=== PATIENT | male | born 1970 | race Caucasian/White ===

== ENCOUNTER 2021-06-21 08:53 | Outpatient (CLI) | payer BC, SELFPAY ==
--- NOTE | ~2021-06-21 | CT_ITS ---
EXAMINATION: CT sinus wo con DATE: 06/21/2021 09:16 INDICATION: Chronic congestion. Chronic sinusitis. TECHNIQUE: Computed tomography (CT) of the paranasal sinuses was performed without contrast. Iterativ e reconstruction technique was employed. Exam dose: 292.34 mGy-cm total exam DLP. COMPARISON: None FINDINGS: There is leftward deviation of the lower portion of the nasal septum and rightward bowing o f the upper portion. There is asymmetric moderate soft tissue swelling of the left nasal turbinates. The ostiomeatal units are patent bilaterally. There is an approximately 1.6 x 2.5 cm soft tissue density in the lower left maxillary sinus which ma y represent polyp or mucous retention cyst. There is otherwise mild nodular mucoperiosteal thickening in the lower portion of both maxillary sinuses. The ethmoid air cells and sphenoid sinuses are clear. The frontal sinuses are minimally developed. The mastoid air cells are normally developed and aerated bilaterally. IMPRESSION: Prominent polyp or mucous retention cyst in the lower left maxillary sinus Minimal nodular mucoperiosteal thickening of the lower portion of both maxillary sinuses Reviewed, dictated and finalized at [facility]. Reviewed, dictated and finalized at [facility]. HOUSEMAN IMPRESSION: Prominent polyp or mucous retention cyst in the lower left maxilla ry sinus Minimal nodular mucoperiosteal thickening of the lower portion of both maxillar y sinuses
== END 2021-06-21 08:54 | disposition home or self-care (01) ==
LOC: ANHIMG 08:57
PROVIDERS: PCP Family Medicine; Visit Provider Otolaryngology
DX: J32.9 Chronic sinusitis, unspecified (principal)
CPT/HCPCS: 70486

== ENCOUNTER → 2021-07-05 09:33 | Outpatient (CLI) | payer BC, SELFPAY ==
--- NOTE | ~2021-07-05 | MR_ITS ---
EXAMINATION: MR brain IAC wo/w con DATE: 07/05/2021 10:35 INDICATION: Left-sided sensorineural hearing loss. TECHNIQUE: Magnetic resonance imaging (MRI) of the brain, brainstem, and internal auditory canals was performed without and with 20 mL MultiHance intravenous contrast. Sequences included sagittal and ax ial T1-weighted FSE, axial diffusion-weighted FS EPI, axial T2*-weighted GRE, axial T2-weighted FLAIR Propeller, axial T2-weighted Propeller, small hhzts-bv-qjkd coronal FIESTA, small kwxwf-vg-ailu dawit nal T1-weighted FSE, and small qoivg-aw-pzkk axial T1-weighted SPGR. Postcontrast sequences included axial T1-weighted FSE, small mccrd-oq-ytud coronal T1-weighted FSE, and small qneha-hu-twxc axial T1- weighted SPGR. Apparent diffusion coefficient (ADC) maps were created. COMPARISON: CT sinuses 06/21/21 FINDINGS: There is no intracranial hemorrhage, acute infarction, or abnormal intracranial mass lesion . There are scattered areas of nonspecific increased T2-weighted signal intensity in the cerebral whi te matter, which is within normal limits for the patient's age. The ventricles are normal in size. Th ere is a mucous retention cyst in left maxillary sinus. The orbits are normal. The internal auditory canals and inner and middle ears are normal. The mastoid air cells are normal. IMPRESSION: 1. Normal brain. Reviewed, dictated and finalized at [facility]. LINER IMPRESSION: 1. Normal brain.
[2021-07-05 09:55] LABS: Estimated Glomerular Filt Rate > 60
== END ==
PROVIDERS: PCP Family Medicine; Visit Provider Otolaryngology
DX: H90.3 Sensorineural hearing loss, bilateral (principal)
CPT/HCPCS: 70553; A9577

== ENCOUNTER → 2022-05-05 11:27 | Outpatient (CLI) | payer BC, SELFPAY ==
--- NOTE | ~2022-05-05 | XR_ITS ---
XR chest 2V DATE: 05/05/2022 11:36 INDICATION: Cough and fever and shortness of breath for 8 to 9 days TECHNIQUE: 2 views, including PA projection and 2 lateral projections COMPARISON: None FINDINGS: Normal heart size. No hilar or mediastinal enlargement. There is mild discoid atelectasis or scarring in the left midlung. No pulmonary infiltrate or consolidation, pleural effusion or pulmonary vascular congestion or pneumo thorax is noted otherwise. IMPRESSION: Mild discoid atelectasis or scarring, left midlung; otherwise no active cardiopulmonary d isease Reviewed, dictated and finalized at [facility]. CAL RESEARCHER IMPRESSION: Mild discoid atelectasis or scarring, left midlung; otherwise no ac tive cardiopulmonary disease
== END ==
PROVIDERS: PCP Family Medicine; Visit Provider Nurse Practitioner Gerontology
DX: R05.9 Cough, unspecified (principal); R50.9 Fever, unspecified; R06.02 Shortness of breath; R91.8 Other nonspecific abnormal finding of lung field
CPT/HCPCS: 71046

== ENCOUNTER 2022-09-16 01:27 | Day surgery (SDC) | payer BC, SELFPAY ==
[2022-09-02 14:06] VITALS: BMI 35.8
--- NOTE | 2022-09-15 14:10 | P.HP_ITS ---
History of Present Illness History of Present Illness Consent: Risks, benefits, and alternatives have been discussed and questions answered. Patient agrees to proceed with procedure. Chief complaint: neoplasm screening Narrative: Hector Elizalde Jr. is a 52 year old male Referred for colon cancer screening. [facility] Past Medical History Medical History Gout History of urethral stricture Hyperlipidemia, unspecified Family History Family History Father Family history of gout Mother Family history of malignant neoplasm of breast in first degree relative Social History Social History Social History: Smoking packs per day: 1 Smoking cigarettes per day: 20.0 Years smoked: 12 Smoking pack-years: 12.00 Smoking status: Former smoker Tobacco type: cigarettes Second hand tobacco smoke exposure: No Smoking end date: 06/05/03 Alcohol intake: never Substance use: never Substance use type: does not use Living arrangements: with family Occupation/Education: occupation Gender identity (if verbalized by the patient): Male Sexual Orientation (if Verbalized by the Patient): Straight or Heterosexual Spiritual care concerns: No Meds Home Medications and Allergies Home Medications Medication Instructions Recorded Confirmed Type rosuvastatin 10 mg tablet 10 mg PO QPM #90 tabs 06/02/22 09/16/22 Rx Allergies Allergy/AdvReac Type Severity Reaction Status Date / Time tetracycline Allergy Severe RASH/SWELLI Verified 09/16/22 08:43 NG benzonatate Allergy tongue Verified 09/16/22 08:43 swelling Assessment and Plan Assessment and plan (1) Colon cancer screening: Code(s): Z12.11 - Encounter for screening for malignant neoplasm of colon Status: Acute Assessment and Plan: Colonoscopy with possible biopsy or polypectomy or cautery or injection of substances.
[2022-09-16 08:44] VITALS: BP 144/89; PULSE 93; RESP 18; TEMP 36.2; O2SAT 99
[2022-09-16] MEDS: LACTATED RINGERS 1,000 ML 150 ML IV CONT (08:59)
--- NOTE | 2022-09-16 09:11 | P.PNAN_ITS ---
Anes - Initial Pre Proc Eval Procedure: Operation Date: 09/16/22 10:00 Proposed Procedures p Screening Colonoscopy - Zach Contreras MD Date/Time: 09/16/22 09:11 Surgeon: Zach Contreras MD Pre Op Diagnosis: neoplasm screening Patient Data Age: 52 Gender: M Height: 1.75 m Weight: 117.8 kg Last Vital Signs Temp 97.1 F L 09/16/22 08:44 Pulse 93 09/16/22 08:44 Resp 18 09/16/22 08:44 BP 144/89 H 09/16/22 08:44 Pulse Ox 99 09/16/22 08:44 O2 Del Method Room Air 09/16/22 08:44 Allergies Allergy/AdvReac Type Severity Reaction Status Date / Time tetracycline Allergy Severe RASH/SWELLI Verified 09/16/22 08:43 NG benzonatate Allergy tongue Verified 09/16/22 08:43 swelling Home Medications Medication Instructions Recorded Confirmed Type rosuvastatin 10 mg tablet 10 mg PO QPM #90 tabs 06/02/22 09/16/22 Rx Patient hx anesthesia problems: none Family hx anesthesia problems: none Results Review: All pre-operative results and documents have been reviewed as part of the pre- operative evaluation. FOR[facility]LY [facility], [facility] Past Medical History Medical History Gout History of urethral stricture Hyperlipidemia, unspecified Family History Family History Father Family history of gout Mother Family history of malignant neoplasm of breast in first degree relative Social History Social History Social History: Smoking packs per day: 1 Smoking cigarettes per day: 20.0 Years smoked: 12 Smoking pack-years: 12.00 Smoking status: Former smoker Tobacco type: cigarettes Second hand tobacco smoke exposure: No Smoking end date: 06/05/03 Alcohol intake: never Substance use: never Substance use type: does not use Living arrangements: with family Occupation/Education: occupation Gender identity (if verbalized by the patient): Male Sexual Orientation (if Verbalized by the Patient): Straight or Heterosexual Spiritual care concerns: No Anes - Eval Final PreProcedure Day of Procedure 09/16/22 09:11 Patient weight: obese Airway: Mallampati scale class II ASA classification: III Anesthesia type and monitoring: general GIVS and standard monitoring Results Review: All pre-operative results and documents have been reviewed as part of the pre- operative evaluation. Informed Consent: The patient's anesthetic plan and its attendant risks and benefits were discussed with the patient/family/POA. Questions were solicited and answers provided to the satisfaction of the patient/family/POA.
[2022-09-16 09:52] VITALS: BP 98/54; PULSE 91; RESP 26; O2SAT 92
[2022-09-16 10:02] VITALS: BP 121/73; PULSE 86; RESP 22; O2SAT 95
[2022-09-16 10:12] VITALS: BP 117/72; PULSE 85; RESP 21; O2SAT 96
== END 2022-09-16 10:21 | disposition home or self-care (01) ==
PROVIDERS: PCP Family Medicine; Visit Provider Internal Medicine Gastroenterology
PROC: 0DJD8ZZ Inspection of Lower Intestinal Tract, Via Natural or Artificial Opening Endoscopic (ICD-10-PCS; CPT 45378; principal; 2022-09-16 10:00)
DX: Z12.11 Encounter for screening for malignant neoplasm of colon (principal); D12.4 Benign neoplasm of descending colon; K57.30 Diverticulosis of large intestine without perforation or abscess without bleeding; E78.5 Hyperlipidemia, unspecified; Z87.891 Personal history of nicotine dependence; E66.9 Obesity, unspecified; Z68.38 Body mass index [BMI] 38.0-38.9, adult
CPT/HCPCS: 45385; 88305; J2704; J7120

== ENCOUNTER 2022-10-14 16:42 | Outpatient (CLI) | payer BC, SELFPAY ==
[2022-10-14 17:08] LABS: Basophils Percent Auto 0.3 % (0.2-1.2); Eosinophils Percent Auto 1.1 % (0-4.4); Hematocrit 37.2 % (42.0-52.0); Hemoglobin 12.6 g/dL (14.0-18.0); Immature Granulocyte Absolute 0.01 K/mm3 (0.00-0.031); Immature Granulocyte Percent A 0.3 % (0-0.5); Lymphocytes Absolute Auto 0.64 K/mm3 (0.9-3.2); Lymphocytes Percent Auto 17.1 % (18.3-44.2); Mean Corpuscular HGB Conc 33.9 g/dl (32-36); Mean Corpuscular Volume 85.5 fl (80-100); Mean Platelet Volume 8.3 fl (7.4-10.4); Monocytes Absolute Auto 0.4 K/mm3 (0.1-0.6); Monocytes Percent Auto 10.1 % (2.6-8.5); Neutrophils Absolute Auto 2.7 K/mm3 (1.3-6.7); Neutrophils Percent Auto 71.1 % (45.5-73.1); Platelet Count Result 119 k/mm3 (150-375); Red Blood Count 4.35 M/mm3 (4.6-6.20); Red Cell Distribution Width 13.7 % (11.5-14.5); White Blood Count 3.8 K/mm3 (4.5-10.0)
[2022-10-18 14:14] LABS: Varicella IgM Antibody <=0.90 (<=0.90)
[2022-10-21 11:31] LABS: HSV 1 IgM Screen Negative (Negative); HSV 2 IgM Screen Negative (Negative)
== END 2022-10-14 16:43 | disposition home or self-care (01) ==
LOC: ANHLAB 16:43
PROVIDERS: PCP Family Medicine; Visit Provider Physician Assistant
DX: R21 Rash and other nonspecific skin eruption (principal)
CPT/HCPCS: 36415; 85025; 86695; 86696; 86787

== ENCOUNTER → 2022-10-20 12:59 | Outpatient (CLI) | payer BC, SELFPAY ==
--- NOTE | ~2022-10-20 | XR_ITS ---
EXAMINATION: XR chest 2V DATE: 10/20/2022 13:10 INDICATION: Fever, unspecified. TECHNIQUE: Frontal and lateral views of the chest were obtained. COMPARISON: Chest 2 views 05/05/2022 FINDINGS: The chest demonstrates clear lungs without pneumonia, pleural effusion, or pneumothorax. Th e heart size is normal. IMPRESSION: 1. No acute cardiopulmonary disease. Reviewed, dictated and finalized at location [facility].
== END ==
PROVIDERS: PCP Physician Assistant; Visit Provider Physician Assistant
DX: R50.9 Fever, unspecified (principal)
CPT/HCPCS: 71046

== ENCOUNTER 2022-11-07 12:00 | Outpatient (CLI) | payer BC, SELFPAY ==
[2022-11-07 12:27] LABS: Basophils Percent Auto 0.4 % (0.2-1.2); Eosinophils Absolute Auto 0.1 K/mm3 (0-0.3); Eosinophils Percent Auto 2.6 % (0-4.4); Hematocrit 39.6 % (42.0-52.0); Immature Granulocyte Absolute 0.02 K/mm3 (0.00-0.031); Immature Granulocyte Percent A 0.4 % (0-0.5); Lymphocytes Absolute Auto 1.54 K/mm3 (0.9-3.2); Lymphocytes Percent Auto 28.7 % (18.3-44.2); Mean Corpuscular HGB Conc 32.8 g/dl (32-36); Mean Corpuscular Hemoglobin 28.8 pg (26-34); Mean Corpuscular Volume 87.6 fl (80-100); Mean Platelet Volume 8.2 fl (7.4-10.4); Monocytes Absolute Auto 0.4 K/mm3 (0.1-0.6); Monocytes Percent Auto 6.7 % (2.6-8.5); Neutrophils Absolute Auto 3.3 K/mm3 (1.3-6.7); Neutrophils Percent Auto 61.2 % (45.5-73.1); Platelet Count Result 152 k/mm3 (150-375); Red Blood Count 4.52 M/mm3 (4.6-6.20); Red Cell Distribution Width 14.7 % (11.5-14.5); White Blood Count 5.4 K/mm3 (4.5-10.0)
== END 2022-11-07 12:01 | disposition home or self-care (01) ==
LOC: ANHLAB 12:01
PROVIDERS: PCP Family Medicine; Visit Provider Nurse Practitioner Gerontology
DX: D61.818 Other pancytopenia (principal)
CPT/HCPCS: 36415; 85025

== ENCOUNTER → 2023-02-15 16:42 | Outpatient (CLI) | payer BC, SELFPAY ==
--- NOTE | ~2023-02-15 | XR_ITS ---
Thoracic spine: Clinical Indication: Back pain AP and lateral views were performed. No fracture is seen. There is normal alignment of the vertebrae. The intervertebral disc spaces appe ar normal. Paravertebral soft tissues appear normal. Impression: No significant abnormalities noted. Reviewed, dictated and finalized at [facility]. Impression: No significant abnormalities noted.
== END ==
PROVIDERS: PCP Family Medicine; Visit Provider Chiropractor
DX: M54.6 Pain in thoracic spine (principal)
CPT/HCPCS: 72072

== ENCOUNTER 2024-02-01 08:41 | Outpatient (CLI) | payer BC, SELFPAY ==
--- NOTE | 2024-02-12 17:00 | WPDSLEEPSTUD ---
Sleep Study Date of Study: 02/01/24 Ordering Provider: Eliel Lawrence APRN Interpreting Physician: Inez Joy MD Sleep Study Type: Split Polysomnogram Height: 1.73 m Weight: 120.202 kg Body Mass Index: 40.3 Neck Circumference (inches): 20 [place]: 13 Reason for Sleep Study Hypersomnolence Sleep History Hector Elizalde Jr is a 54-year-old man with witnessed apneas during sleep. He has a history of recurrent sinus infections. He rarely awakens at night with heartburn, belching or coughing. He frequently snores loudly enough that others complain about it. He occasionally has difficulty sleeping with a cold. He rarely wakes up gasping for breath at night. He frequently has breathing problems at night observed by others. He frequently sweats excessively at night. He rarely notices his heart pounding or beating irregularly during the night. He frequently falls asleep during the day, occasionally falls asleep involuntarily and frequently falls asleep while driving. He has had sinus infections at least once per year however this year, he has had more problems with sinusitis and bronchitis for a few months, treated with antibiotics and steroids, Mucinex, Zyrtec, and Breztri. His symptoms improved. His PCP felt his prolonged sinus symptoms may also be influenced by possible untreated sleep apnea. He has no history of asthma. Reports some seasonal allergies at times. He does not have loss of muscle tone with strong emotion. He does not have daytime difficulties due to excessive sleepiness, he works in tech sales. He does not feel paralyzed on waking or falling asleep. He does not have vivid dreamlike scenes upon awakening or falling asleep. He does not feel afraid to go to sleep. He does not have nightmares. He occasionally remembers his dreams. He rarely has racing thoughts. He does not feel sad, depressed or anxious. He rarely has muscular tension. He does not notice parts of his body jerking. He does not kick at night. He rarely has crawling and aching feelings in his legs. He does not have any type of leg pain during the night. He does not have morning jaw pain. He does not grind his teeth during sleep. He is not bothered by pain during the day nor is he awakened by pain at night. He occasionally wakes up feeling stiff in the morning. He rarely wakes up with sore or achy muscles. He occasionally wakes up with pain in the neck and spine. He has fatigue. Normal bedtime is between 10:00 p.m. and 10:30 p.m., falling asleep within 10 minutes, waking twice at night between 1 and 2:00 a.m. for less than 10 minutes. He is able to return to sleep easily, wakes the morning at 6:30 a.m.. His weekend schedule is similar, bedtime is 11:00 p.m. and his wake time is 7:30 a.m.. He does not take naps in the afternoon or evening. A short nap lasting 10-15 minutes may be refreshing. He feels better in the morning compared to other times of day. Tobacco, quit 12 years ago. Caffeine, 4-6 cups daily. Alcohol: none Recreational substances: none PMFSH Past Medical History Medical History Gout History of urethral stricture Hyperlipidemia, unspecified Family History Family History Father Family history of gout Mother Family history of malignant neoplasm of breast in first degree relative Social History Social History Social History: Smoking packs per day: 1 Smoking cigarettes per day: 20.0 Years smoked: 12 Smoking pack-years: 12.00 Smoking status: Former smoker Tobacco type: cigarettes Second hand tobacco smoke exposure: No Smoking end date: 06/05/03 Alcohol intake: never Substance use: never Substance use type: does not use Lack of Transportation: No Lack of Food: Never True Current Housing: I Have Housing Concerned
[2024-02-12 17:03] VITALS: BMI 40.3
== END 2024-02-02 08:03 | disposition home or self-care (01) ==
LOC: ANHCSM 08:42
PROVIDERS: PCP Family Medicine; Visit Provider Nurse Practitioner Family
DX: G47.33 Obstructive sleep apnea (adult) (pediatric) (principal); G47.10 Hypersomnia, unspecified; Z68.41 Body mass index [BMI] 40.0-44.9, adult
CPT/HCPCS: 95811